=== PATIENT | male | born 1990 | race Caucasian/White ===

== ENCOUNTER 2017-09-10 15:03 | Emergency (ER) | payer OTHER ==
--- NOTE | 2017-09-10 15:22 | PDOC ---
Rapid Medical Evaluation Time Seen by Provider: 09/10/17 15:21 Medical Evaluation: Allergies Allergy/AdvReac Type Severity Reaction Status Date / Time No Known Allergies Allergy Verified 09/10/17 15:21 09/10/17 15:22 I have performed a brief in-person evaluation of this patient. The patient presents with a chief complaint of: b/l knee pain. C/o b/l knee pain x months. Plays basketball. Has not tried anything for pain Pertinent physical exam findings:Unremarkable I have ordered the following:nothing The patient will proceed to the ED for further evaluation Discharge Disposition - Diagnosis Knee pain, bilateral Qualifiers: Chronicity: acute Qualified Code(s): M25.561 - Pain in right knee; M25.562 - Pain in left knee - Referrals - Patient Instructions - Post Discharge Activity
[2017-09-10 15:24] VITALS: BP 131/74; PULSE 70; TEMP 98.2; BMI 27.3
[2017-09-10] MEDS ORDERED: KETOROLAC TROMETHAMINE 30 MG/1 ML VIAL IM ONE (16:04)
[2017-09-10] MEDS ORDERED: KETOROLAC TROMETHAMINE 30 MG/1 ML VIAL ONE (16:08)
--- NOTE | 2017-09-10 16:10 | PDOC ---
History of Present Illness - General Chief Complaint: Pain, Acute Stated Complaint: REVISIT/ KNEES PAIN Time Seen by Provider: 09/10/17 15:21 History Source: Patient Exam Limitations: No Limitations - History of Present Illness Initial Comments: 09/10/17 16:05 27-year-old male without significant past medical history presents emergency department bilateral knee pain status post playing basketball on 09/08. Patient states while attempting to make a shot he struck his knees on the metal pole which hold the basketball. Patient is been able to walk for the past 2 days since the injury happened but has not taken any pain medication to relieve his pain. Past History - Past Medical History Allergies/Adverse Reactions: Allergies Allergy/AdvReac Type Severity Reaction Status Date / Time No Known Allergies Allergy Verified 09/10/17 15:21 Home Medications: Ambulatory Orders NK [No Known Home Medication] 09/10/17 COPD: No - Immunization History Immunization Up to Date: Yes - Suicide/Smoking/Psychosocial Hx Smoking History: Never smoked Number of Cigarettes Smoked Daily: 2 Information on smoking cessation initiated: No Hx Alcohol Use: Yes Drug/Substance Use Hx: No Review of Systems - Review of Systems Able to Perform ROS?: Yes Is the patient limited Danish proficient: No Constitutional: No: Symptoms Reported HEENTM: No: Symptoms Reported Respiratory: No: Symptoms reported Cardiac (ROS): No: Symptoms Reported ABD/GI: No: Symptoms Reported : No: Symptoms Reported Musculoskeletal: Yes: See HPI Integumentary: No: Symptoms Reported Neurological: No: Symptoms reported *Physical Exam - Vital Signs Last Vital Signs Temp Pulse Resp BP Pulse Ox 98.2 F 70 18 131/74 100 09/10/17 15:22 09/10/17 15:22 09/10/17 15:22 09/10/17 15:22 09/10/17 15:22 - Physical Exam General Appearance: Yes: Appropriately Dressed. No: Apparent Distress Vascular Pulses: Dorsalis-Pedis (R): 2+, Doralis-Pedis (L): 2+ Musculoskeletal: positive: Normal Inspection. negative: CVA Tenderness Extremity: positive: Normal Inspection, Normal Range of Motion. negative: Tender Integumentary: positive: Normal Color, Dry, Warm Neurologic: positive: Alert, Motor Strength 5/5 Medical Decision Making - Medical Decision Making 09/10/17 16:06 A/P: 27-year-old male with bilateral knee pain for 2 days No bony tenderness Negative Monty test bilaterally 2+ dorsalis pedis pulses bilaterally Full flexion and extension against resistance without difficulty No pain with palpation to bilateral hips or bilateral ankles. Toradol, discharged with orthopedic follow-up *DC/Admit/Observation/Transfer Diagnosis at time of Disposition: Knee pain, bilateral Qualifiers: Chronicity: acute Qualified Code(s): M25.561 - Pain in right knee - Discharge Dispostion Disposition: HOME Condition at time of disposition: Fair Decision to Admit order: No - Referrals Referrals: Pastor Dan MD [Staff Physician] - - Patient Instructions Additional Instructions: You have been given a referral for Dr. Dan, an orthopedist. Please make an appointment if his symptoms do not resolve within the next 4 days. Apply ice to your knees for 20 minutes at a time. After 20 minutes remove the ice for at least 20 minutes before reapplying. Take Tylenol or Motrin as directed by pets salesperson's instructions for pain relief. Return to emergency department for any worsening symptoms. - Post Discharge Activity Forms/Work/School Notes: Back to Work
== END 2017-09-10 16:13 | disposition home or self-care (01) ==
LOC: JERFT 15:03
PROC: 3E0233Z Introduction of Anti-inflammatory into Muscle, Percutaneous Approach (ICD-10-PCS; principal; 2017-09-10)
DX: M25.562 Pain in left knee (principal); S89.82XA Other specified injuries of left lower leg, initial encounter; S89.81XA Other specified injuries of right lower leg, initial encounter; W22.09XA Striking against other stationary object, initial encounter; Y93.67 Activity, basketball; Y92.310 Basketball court as the place of occurrence of the external cause; Y99.8 Other external cause status
CPT/HCPCS: 96372; 99281-25

== ENCOUNTER 2019-05-16 19:40 | Emergency (ER) | payer OTHER ==
[2019-05-16 19:50] VITALS: BP 138/82; PULSE 57; TEMP 98.1; BMI 25.1
[2019-05-16] MEDS ORDERED: SUCRALFATE 1 GM/10 ML UNIT DOSE CUPS PO ONE (21:11)
[2019-05-16] MEDS ORDERED: ONDANSETRON 4 MG/2 ML VIAL IVPUSH ONE (21:11)
[2019-05-16] MEDS ORDERED: ACETAMINOPHEN 1000 MG/100 ML VIAL (NON FORMULARY) IVPB ONE (21:11)
[2019-05-16] MEDS ORDERED: SODIUM CHLORIDE 1,000 ML IV STA ×2 (21:11→23:17)
--- NOTE | 2019-05-16 21:15 | PDOC ---
Attending Attestation - Resident Resident Name: Adrián Hansen - ED Attending Attestation I have performed the following: I have examined & evaluated the patient, The case was reviewed & discussed with the resident, I agree w/resident's findings & plan - HPI HPI: 05/17/19 02:51 see resident hpi - Physicial Exam PE: 05/17/19 02:51 agree with resident exam - Medical Decision Making 05/17/19 02:51 28-year-old male with upper abdominal pain after eating greasy chicken Lipase was elevated just below 3 times normal Ultrasound of the right upper quadrant was within normal limits Patient pain-free and nontender on reevaluation after antacids Will DC with recommended GI follow-up as an outpatient He is well-appearing, he states he feels fine and could eat He has been ambulating up and down the hallways in the emergency department without difficulty
--- NOTE | 2019-05-16 21:29 | PDOC ---
History of Present Illness - General Chief Complaint: Pain, Acute Stated Complaint: ABD PAIN Time Seen by Provider: 05/16/19 21:15 History Source: Patient Exam Limitations: No Limitations - History of Present Illness Initial Comments: 28 yo M with no past medical history presents to the emergency department with epigastric pain since yesterday. Per the patient, the pain is a burning like sensation with reflux like symptoms. Denies a hx of GERD and gastritis and has not used anti-acid medications. Denies the following: vomiting, diarrhea, constipation, dysuria, hematuria, chest pain, SOB, ears/nose/throat pain, and headache. Endorses nausea. The pain is cramping in nature without radiation and worsens with eating greasy food. Denies abdominal surgeries. Allergies: NKDA Past History - Past Medical History Allergies/Adverse Reactions: Allergies Allergy/AdvReac Type Severity Reaction Status Date / Time No Known Allergies Allergy Verified 05/16/19 19:51 Home Medications: Ambulatory Orders NK [No Known Home Medication] 09/10/17 COPD: No - Immunization History Immunization Up to Date: Yes - Psycho Social/Smoking Cessation Hx Smoking History: Current every day smoker Number of Cigarettes Smoked Daily: 4 Information on smoking cessation initiated: No Hx Alcohol Use: No Drug/Substance Use Hx: No Review of Systems - Review of Systems Able to Perform ROS?: Yes Is the patient limited Montenegrin proficient: No Constitutional: No: Chills, Diaphoresis, Fever, Weakness HEENTM: No: Ear Pain, Nose Pain, Throat Pain, Mouth Pain Respiratory: No: Cough, Shortness of Breath, Hemoptysis Cardiac (ROS): No: Chest Pain, Lightheadedness, Palpitations, Syncope ABD/GI: Yes: Nausea, Abdominal cramping. No: Constipated, Diarrhea, Rectal Bleeding, Vomiting, Tarry Stools : No: Burning, Dysuria, Hematuria Musculoskeletal: No: Back Pain, Joint Pain, Neck Pain Integumentary: No: Bruising, Erythema, Rash Neurological: No: Headache, Numbness Psychiatric: No: Change in Appetite Endocrine: No: Unexplained Weight Loss Hematologic/Lymphatic: No: Anemia *Physical Exam - Vital Signs Last Vital Signs Temp Pulse Resp BP Pulse Ox 98.1 F 57 L 18 138/82 100 05/16/19 19:46 05/16/19 19:46 05/16/19 19:46 05/16/19 19:46 05/16/19 19:46 - Physical Exam General Appearance: Yes: Nourished, Appropriately Dressed. No: Apparent Distress, Intoxicated, Obese HEENT: positive: EOMI, ARTURO, Normal Voice, Symmetrical, Pharynx Normal, Hearing Grossly Normal. negative: Pale Conjunctivae, Scleral Icterus (R), Scleral Icterus (L), Muffled/Hoarse voice, Pharyngeal Erythema, Tonsillar Exudate, Tonsillar Erythema, Nasal Congestion, Rhinorrhea, Excessive drooling Neck: positive: Trachea midline, Supple. negative: Tender, Lymphadenopathy (R) , Lymphadenopathy (L) Respiratory/Chest: positive: Lungs Clear, Normal Breath Sounds. negative: Chest Tender, Respiratory Distress, Paradoxal Breathing, Crackles, Rales, Rhonchi, Stridor Cardiovascular: positive: Regular Rhythm, Regular Rate, S1, S2. negative: Systolic Murmur Gastrointestinal/Abdominal: positive: Normal Bowel Sounds, Tender (epigastric tenderness on examination), Flat, Soft. negative: Distended, Guarding, Rebound Lymphatic: negative: Adenopathy Musculoskeletal: positive: Normal Inspection. negative: CVA Tenderness, Vertebral Tenderness Extremity: positive: Normal Capillary Refill, Normal Inspection, Normal Range of Motion. negative: Tender Integumentary: positive: Normal Color, Dry, Warm Neurologic: positive: Fully Oriented, Alert, Normal Mood/Affect ED Treatment Course - LABORATORY CBC & Chemistry Diagram: 05/16/19 22:14 05/16/19 22:14 Medical Decision Making - Medical Decision Making 28 yo M with no past medical history presents to the emergency department with epigastric pain since yesterday. Per the patient, the pain is a burning like sensation with reflux like symptoms Initial vitals: Initial Vital Signs Temp Pulse Resp BP Pulse Ox 98.1 F 57 L 18 138/82 100 05/16/19 19:46 05/16/19 19:46 05/16/19 19:46 05/16/19 19:46 05/16/19 19:46 Work up: ddx: pancreatitis vs cholelithiasis vs cholecystitis vs gastritis vs GERD Laboratory Tests 05/16/19 05/16/19 05/16/19 22:14 22:14 22:14 WBC 6.5 RBC 4.72 Hgb 15.2 Hct 42.9 MCV 90.8 MCH 32.1 MCHC 35.4 RDW 12.3 Plt Count 250 MPV 8.4 Absolute Neuts (auto) 5.2 Neutrophils % 80.0 Lymphocytes % 13.5 Monocytes % 5.5 Eosinophils % 0.6 Basophils % 0.4 Nucleated RBC % 0 Sodium 141 Potassium 3.3 L Chloride 108 H Carbon Dioxide 26 Anion Gap 6 L BUN 8.3 Creatinine 0.9 Est GFR (CKD-EPI)AfAm 134.24 Est GFR (CKD-EPI)NonAf 115.82 Random Glucose 111 H Calcium 8.6 Total Bilirubin 0.4 AST 22 ALT 23 Alkaline Phosphatase 78 Total Protein 6.6 Albumin 4.0 Lipase 893 H patient has elevation in lipase. US is negative for cholesystitis and cholelithiasis. Patient was reassessed after GI cocktail and fluids. Pain had resolved and the patient wishes to be discharged. Strict return precautions were given to the patient and I instructed them to abstain from alcohol drinking as it could worsen his symptoms in the future. The patient understood the plan and was discharged. Dispo: Discharge Discharge - Discharge Information Problems reviewed: Yes Clinical Impression/Diagnosis: Elevated lipase Disposition: HOME - Follow up/Referral Referrals: [facility] [place] [Provider Group] - Patient Discharge Instructions Patient Printed Discharge Instructions: DI for Abdominal Pain-Adult Additional Instructions: You were evaluated for your abdominal pain. Your lipase was elevated which indicates some inflammation of your pancreas. Please abstain from drinking as this can worsen your condition. Please follow up with your primary medical doctor within 1 week after discharge. Please return to the emergency department if you have worsening symptoms or new concerning symptoms. Thank you. - Post Discharge Activity
[2019-05-16] MEDS ORDERED: SUCRALFATE 1 GM TABLET (FP) ONE (21:57)
[2019-05-16] MEDS ORDERED: ACETAMINOPHEN INJECTION 100 ML IVPB ONE (21:57)
[2019-05-16] MEDS ORDERED: ONDANSETRON 4 MG/2 ML VIAL ONE (21:58)
[2019-05-16 22:28] LABS: BASO % 0.4 % (0-2.0); EOS % 0.6 % (0-4.5); HEMATOCRIT 42.9 % (35.4-49); HEMOGLOBIN 15.2 GM/dL (11.7-16.9); LYMPH % 13.5 % (8-40); MCH 32.1 pg (25.7-33.7); MCHC 35.4 g/dl (32.0-35.9); MEAN CELL VOLUME 90.8 fl (80-96); MEAN PLT VOLUME 8.4 fl (7.5-11.1); MONO % 5.5 % (3.8-10.2); PLATELET COUNT 250 K/MM3 (134-434); RBC 4.72 M/mm3 (4.00-5.60); RDW 12.3 % (11.9-15.9); WHITE BLOOD COUNT 6.5 K/mm3 (4.0-10.0)
[2019-05-16 23:03] LABS: BILIRUBIN,TOTAL 0.4 mg/dL (0.2-1); BLOOD UREA NITROGEN 8.3 mg/dL (7-18); CALCIUM 8.6 mg/dL (8.5-10.1); CREATININE 0.9 mg/dL (0.55-1.3); POTASSIUM 3.3 mmol/L (3.5-5.1); TOT PROT 6.6 g/dl (6.4-8.2)
[2019-05-16] MEDS ORDERED: KCL 10 MEQ IVPB 10 MEQ/100 ML INFUS.BAG IVPB SCH (23:30)
[2019-05-16] MEDS ORDERED: KCL 10 MEQ IVPB 10 MEQ/100 ML INFUS.BAG IVPB ONE (23:47)
== END 2019-05-17 03:23 | disposition home or self-care (01) ==
LOC: JER 19:40
PROC: 3E033GC Introduction of Other Therapeutic Substance into Peripheral Vein, Percutaneous Approach (ICD-10-PCS; principal; 2019-05-16)
PROC: 3E033NZ Introduction of Analgesics, Hypnotics, Sedatives into Peripheral Vein, Percutaneous Approach (ICD-10-PCS; 2019-05-16)
PROC: 3E033GC Introduction of Other Therapeutic Substance into Peripheral Vein, Percutaneous Approach (ICD-10-PCS; 2019-05-16)
DX: R74.8 Abnormal levels of other serum enzymes (principal)
CPT/HCPCS: 36415; 76705-TC; 80053; 83690; 85025; 96365; 96375; 99283-25; J0131; J7030